=== PATIENT | male | born 2000 | race Caucasian/White ===

== ENCOUNTER 2018-03-31 01:04 | Emergency (ER) | payer SELFPAY ==
[~2018-03-31] VITALS: Ht 185.4 cm; Wt 113.6 kg
[~2018-03-31 01:04] MED LIST: FLUT44HFA; IBUP100O59
[2018-03-31 04:22] VITALS: BP 139/78
== END 2018-03-31 04:23 | disposition home or self-care (01) ==
LOC: EMS 01:04
DX: S83.92XA Sprain of unspecified site of left knee, initial encounter (principal); Z88.1 Allergy status to other antibiotic agents; X50.9XXA Other and unspecified overexertion or strenuous movements or postures, initial encounter; Y93.89 Activity, other specified; Y92.810 Car as the place of occurrence of the external cause; Y99.8 Other external cause status
CPT/HCPCS: 99284